=== PATIENT | male | born 1990 | race Two or more races ===

== ENCOUNTER 2025-05-16 15:16 | Emergency (ER) | payer MEDICAID ==
[~2025-05-16] VITALS: Ht 165.1 cm; Wt 70.3 kg
[2025-05-16 15:28] VITALS: BP 141/85; TEMP 97.9; O2SAT 99
[2025-05-16] MEDS ORDERED: CEPH-570 PO (15:37)
[2025-05-16] MEDS ORDERED: TDAP [DIPH/PERTUSSIS/TET] 0.5 ML VIAL IM ONE (15:57)
[2025-05-16] MEDS: TDAP [DIPH/PERTUSSIS/TET] 0.5 ML VIAL IM ONE (16:05)
== END 2025-05-16 16:05 | disposition left against medical advice (07) ==
LOC: ER 15:22
DX: S61.412A Laceration without foreign body of left hand, initial encounter (principal); S61.411A Laceration without foreign body of right hand, initial encounter; F17.200 Nicotine dependence, unspecified, uncomplicated; F19.10 Other psychoactive substance abuse, uncomplicated; W55.03XA Scratched by cat, initial encounter; Y93.89 Activity, other specified; Y92.89 Other specified places as the place of occurrence of the external cause; Y99.8 Other external cause status
CPT/HCPCS: 90715